=== PATIENT | female | born 1970 | race Hispanic/Latino ===

== ENCOUNTER → 2018-12-30 | Outpatient (CLI) | payer BC ==
--- NOTE | 2018-12-30 18:19 | Diagnostic Imaging Report ---
FOOT RIGHT COMPLETE - 3 views HISTORY: Pain. Right foot and ankle pain. COMPARISON: None available. FINDINGS: Bones: No acute displaced fracture. Osseous alignment is within normal limits. Plantar calcaneal enthesophyte. Joints: Degenerative changes at the DIP and PIP joints. Moderate severe degenerative changes at the third MTP joint. Hallux valgus deformity. Soft tissues: The soft tissues appear unremarkable. IMPRESSION: Hallux valgus. 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 Signed by: Dr. Lucas Abebe M.D. on 12/30/2018 6:15 PM
--- NOTE | 2018-12-30 18:19 | Diagnostic Imaging Report ---
ANKLE 3 + VIEWS RIGHT - 3 views HISTORY: Pain. Right foot and ankle pain. COMPARISON: None available. FINDINGS: Bones: No acute displaced fracture. Chronic lateral malleolus fracture. Osseous alignment is within normal limits. Joints: The joint spaces are well-maintained. Soft tissues: The soft tissues appear unremarkable. IMPRESSION: No acute radiographic abnormality. Chronic lateral malleolus fracture. Signed by: Dr. Lucas Abebe M.D. on 12/30/2018 6:16 PM
== END ==
LOC: RAD 17:03
PROVIDERS: ATTEND Specialist
DX: M25.571 Pain in right ankle and joints of right foot (principal)